=== PATIENT | female | born 1960 | race Caucasian/White ===

== ENCOUNTER → 2020-10-10 15:04 | Outpatient (CLI) | payer OTHER, SELFPAY ==
--- NOTE | ~2020-10-10 | MM_ITS ---
EXAMINATION: MM screening kay BI w sandeep HISTORY: Screening mammogram TECHNIQUE: Craniocaudal and mediolateral oblique 3-D tomosynthesis images were obtained and synthetic 2-D images were generated. CAD analysis was submitted and interpreted. COMPARISON: 06/01/2019 diagnostic bilateral digital mammogram and limited right breast ultrasound exa mination 06/09/2017, 03/31/2016 bilateral digital screening mammogram examinations BREAST PARENCHYMAL COMPOSITION: The breasts are almost entirely fatty. FINDINGS: There is no evidence of suspicious mass, calcification, or architectural distortion to sugg est malignancy in either breast. There has been no suspicious interval change. IMPRESSION: 1. No mammographic evidence of malignancy. 2. Recommend routine screening mammography in one year. BI-RADS Category 1: Negative Reviewed, dictated and finalized at location A.
== END ==
PROVIDERS: PCP Internal Medicine; Visit Provider Obstetrics & Gynecology
DX: Z12.31 Encounter for screening mammogram for malignant neoplasm of breast (principal)
CPT/HCPCS: 77063; 77067

== ENCOUNTER 2021-05-04 17:02 | Emergency (ER) | payer OTHER, SELFPAY ==
[2021-05-04 17:13] VITALS: BP 182/80; PULSE 83; RESP 16; TEMP 36.7; O2SAT 99
--- NOTE | 2021-05-04 17:14 | ED.WOUNDLAC ---
HPI - Wound/Laceration General Chief Complaint: Wound/Laceration Stated Complaint: left 1st digit toe Time Seen by Provider: 05/04/21 17:14 Source: patient Mode of arrival: ambulatory Limitations: no limitations History of Present Illness HPI narrative: Jasmin Pagan is a 60 yo female with a PMH of HTN, seasonal allergies, high cholesterol, who comes to [facility] with a small laceration to top of left foot at the base of the great toe and the lid of the can while she was cooking in the kitchen. bleeding is controlled Related Data Home Medications Medication Instructions Recorded Confirmed iqirodg-gggpunkmlkaju-cyxztada 250 1 tablet PO Q4-6H PRN 05/17/19 12/05/20 mg-250 mg-65 mg tablet cyanocobalamin (vitamin B-12) 2,500 mcg PO DAILY 05/17/19 12/05/20 2,500 mcg tablet fexofenadine 180 mg tablet 180 mg PO DAILY 05/17/19 12/05/20 ibuprofen 800 mg tablet 800 mg PO TID 05/17/19 12/05/20 krill 1,000 mg-omega-3 170 mg-dha 1 cap PO BID 05/17/19 12/05/20 50 mg-epa 80 jl-rrfktj-cdebv capsule Allergies Allergy/AdvReac Type Severity Reaction Status Date / Time lisinopril Allergy Mild Cough Verified 12/05/20 09:14 Penicillins Allergy Mild Rash Verified 12/05/20 09:14 Review of Systems Review of Systems: CONSTITUTIONAL: Denies fever, chills, sweats. EYES: Denies visual changes, redness, discharge. ENT: Denies rhinorrhea, congestion, sore throat, otalgia. CARDIOVASCULAR: Denies chest pain, palpitations, edema. RESPIRATORY: Denies dyspnea, wheezing, cough GASTROINTESTINAL: Denies abdominal pain, nausea, vomiting, diarrhea. GENITOURINARY: Denies dysuria, hematuria, abnormal discharge SKIN: Denies rash or itching. Small less than 1 cm straight laceration to the base of the great toe from a can lid NEUROLOGIC: Denies numbness, or focal weakness. PSYCHIATRIC: Denies anxiety or depression. [facility] Past Medical History Medical History (Updated 05/04/21 @ 17:51 by Corina Staley CNP) Arthritis GERD (gastroesophageal reflux disease) Hypercholesteremia Hypertension IBS (irritable bowel syndrome) Surgical History Surgical History History of bladder surgery History of colonoscopy History of primary section Hx of arthroscopic knee surgery Family History Family History Mother Hypertension Family history of chronic obstructive pulmonary disease Family history of diabetes mellitus in first degree relative Father Acute myocardial infarction, Onset Age: 78 Patient's father is Social History Social History Smoking status: Never smoker Second hand tobacco smoke exposure: No Alcohol intake: current Gender identity (if verbalized by the patient): Female Exam Narrative: GENERAL: This is a well-nourished, well-developed patient, in mild distress. HEAD: normocephalic, atraumatic. EYES: Sclera clear/white. Vision is grossly intact. EARS: External ears normal, . Hearing grossly intact. NOSE: External nose normal without nasal discharge, nares without redness, no rhinorrhea. THROAT: Mucous me CARDIOVASCULAR: Regular rate and rhythm without murmurs, gallops, or rubs. RESPIRATORY: Clear to auscultation. Breath sounds equal bilaterally. GASTROINTESTINAL: Abdomen soft, SKIN: warm, intact with less than 1 cm superficial laceration to the top of the left great toe at the base, refill good, bleeding controlled NEURO: awake, alert, and oriented to person, place and time. There were no obvious focal neurologic abnormalities. Steady gait EXTREMITIES: Normal range of motion. BACK: Nontender without deformity Course Course Emergency Course: Patient comes with a small laceration of the top of the foot at the base of the toe Vital Signs Vital signs: Vital Signs Temperature 98.0 F 05/04/21 17:13 Pulse Rate 83 05/04
[2021-05-04] MEDS: TETANUS,DIPHTHERIA,AC PERTUSSIS ADULT (0.5 ML) BOOSTRIX IM (17:56)
== END 2021-05-04 18:14 | disposition home or self-care (01) ==
PROVIDERS: Emergency Provider Nurse Practitioner; PCP Internal Medicine
DX: S91.112A Laceration without foreign body of left great toe without damage to nail, initial encounter (principal); W26.8XXA Contact with other sharp object(s), not elsewhere classified, initial encounter; Z23 Encounter for immunization; M19.90 Unspecified osteoarthritis, unspecified site; K21.9 Gastro-esophageal reflux disease without esophagitis; E78.00 Pure hypercholesterolemia, unspecified; I10 Essential (primary) hypertension
CPT/HCPCS: 12001; 90471; 90715; 99212; G0463

== ENCOUNTER 2021-12-03 18:44 | Emergency (ER) | payer OTHER, SELFPAY ==
[2021-12-03 18:54] VITALS: BP 186/82; PULSE 91; RESP 20; TEMP 37.1; O2SAT 98
--- NOTE | 2021-12-03 18:58 | ED.EYEPROB ---
HPI - Eye Problem General Chief complaint: Eye Problems Stated complaint: Eye Pain Time Seen by Provider: 12/03/21 18:59 Source: patient, RN notes reviewed and old records reviewed Mode of arrival: ambulatory Limitations: no limitations History of Present Illness HPI Narrative: 61-year-old female presents to the [facility] with complaints of eye pain, redness and drainage that started yesterday. Denies any change in vision. Has had drainage and eyes crusted today. No treatment prior to arrival no trauma MD chief complaint: eye pain and eye redness Related Data Home Medications Medication Instructions Recorded Confirmed avikmij-aqyuofubgeyzv-biuygnxo 250 1 tablet PO Q4-6H 05/17/19 12/03/21 mg-250 mg-65 mg tablet (Excedrin Extra Strength) cyanocobalamin (vitamin B-12) 2,500 mcg PO DAILY 05/17/19 12/03/21 2,500 mcg tablet fexofenadine 180 mg tablet 180 mg PO DAILY 05/17/19 12/03/21 (Dian Allergy) ibuprofen 800 mg tablet 800 mg PO TID 05/17/19 12/03/21 krill 1,000 mg-omega-3 170 mg-dha 1 cap PO BID 05/17/19 12/03/21 50 mg-epa 80 ph-xzkjva-fwvgb capsule (krill oil) Allergies Allergy/AdvReac Type Severity Reaction Status Date / Time lisinopril Allergy Mild Cough Verified 12/03/21 18:46 Penicillins Allergy Mild Rash Verified 12/03/21 18:46 Review of Systems Review of Systems: All systems reviewed & are unremarkable except as noted in HPI and below Constitutional: Constitutional: Reports no additional constitutional complaints, Denies chills and Denies fever(s) Eyes: Eyes: Reports as per HPI and Denies change in vision Comments: Drainage and crusty ENT: Reports system reviewed and no additional complaints, except as documented Cardiovascular: Cardiovascular: Reports no additional cardiovascular complaints Respiratory: Respiratory: Reports no additional respiratory complaints Gastrointestinal: Gastrointestinal: Reports no additional gastrointestinal complaints Musculoskeletal: Musculoskeletal: Reports no additional musculoskeletal complaints Integumentary/Breasts: Skin/Breast: Reports system reviewed and no additional complaints, except as docu Neurologic: Reports system reviewed and no additional complaints, except as documented Psychiatric: Psychiatric: Reports no additional psychiatric complaints Allergic/Immunologic: Allergic/Immunologic: Reports no additional allergic/immunologic complaints PMFSH Past Medical History Medical History Allergies Anxiety Arthritis Arthritis of carpometacarpal (CMC) joint of left thumb GERD (gastroesophageal reflux disease) Headache Hypercholesteremia Hypertension IBS (irritable bowel syndrome) Surgical History Surgical History History of bladder surgery History of colonoscopy History of knee surgery History of primary section History of thumb surgery Right thumb CMC suspension arthroplasty 2014 Hx of arthroscopic knee surgery Family History Family History Mother Hypertension Family history of chronic obstructive pulmonary disease Family history of diabetes mellitus in first degree relative Father Acute myocardial infarction, Onset Age: 78 Patient's father is Other Diabetes mellitus Heart disease Social History Social History Smoking status: Never smoker Second hand tobacco smoke exposure: No Alcohol intake: current Substance use: 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 There is no relevant family history pertinent to the patient complaint. Exam Const: General: heal
== END 2021-12-03 19:10 | disposition home or self-care (01) ==
PROVIDERS: Emergency Provider Nurse Practitioner; PCP Internal Medicine
DX: H10.33 Unspecified acute conjunctivitis, bilateral (principal); K21.9 Gastro-esophageal reflux disease without esophagitis; E78.00 Pure hypercholesterolemia, unspecified; I10 Essential (primary) hypertension; M18.9 Osteoarthritis of first carpometacarpal joint, unspecified
CPT/HCPCS: 99213; G0463

== ENCOUNTER 2022-03-31 02:56 | Day surgery (SDC) | payer OTHER, SELFPAY ==
[2022-03-13 11:52] VITALS: BMI 38.1
[2022-03-13 12:07] VITALS: BMI 41.6
[2022-03-31 06:45] VITALS: BP 154/79; PULSE 76; RESP 18; TEMP 36.1; O2SAT 98
[2022-03-31] MEDS: LACTATED RINGERS 1,000 ML 150 ML IV CONT (06:57)
--- NOTE | 2022-03-31 07:20 | WPDANESEPPF ---
Anes - Initial Pre Proc Eval Procedure: Operation Date: 03/31/22 08:00 Proposed Procedures p Screening Colonoscopy - Josef Espinal MD Date/Time: 03/31/22 07:20 Surgeon: Josef Espinal MD Pre Op Diagnosis: neoplasm screening Patient Data Age: 61 Gender: F Height: 1.55 m Weight: 101.1 kg Last Vital Signs Temp 36.1 C L 03/31/22 06:45 Pulse 76 03/31/22 06:45 Resp 18 03/31/22 06:45 BP 154/79 H 03/31/22 06:45 Pulse Ox 98 03/31/22 06:45 O2 Del Method Room Air 03/31/22 06:45 Allergies Allergy/AdvReac Type Severity Reaction Status Date / Time lisinopril Allergy Mild Cough Verified 03/31/22 06:44 Penicillins Allergy Mild Rash Verified 03/31/22 06:44 Home Medications Medication Instructions Recorded Confirmed Type cynlpqs-dnhcohpspnodz-ndztjpeh 250 1 tablet PO Q4-6H PRN Headache 05/17/19 03/13/22 History mg-250 mg-65 mg tablet (Excedrin Extra Strength) cyanocobalamin (vitamin B-12) 2,500 mcg PO DAILY 05/17/19 03/13/22 History 2,500 mcg tablet fexofenadine 180 mg tablet 180 mg PO DAILY PRN Allergy 05/17/19 03/13/22 History (Dian Allergy) Symptoms ibuprofen 800 mg tablet 800 mg PO TID PRN Pain 05/17/19 03/13/22 History krill 1,000 mg-omega-3 170 mg-dha 1 cap PO BID 05/17/19 03/13/22 History 50 mg-epa 80 fk-nvsmwp-jcaji capsule (krill oil) simvastatin 10 mg tablet 10 mg PO DAILY #90 tabs 07/27/21 03/13/22 Rx irbesartan 150 mg tablet (Avapro) 75 mg PO DAILY #45 tabs 10/25/21 03/13/22 Rx ergocalciferol (vitamin D2) 1,250 50,000 unit PO 2XW #26 caps 11/27/21 03/13/22 Rx mcg (50,000 unit) capsule sodium,potassium,mag sulfates 17.5 See Rx Instructions PO .COMPLEX 02/04/22 Rx gram-3.13 gram-1.6 gram oral soln #354 mL (Suprep Bowel Prep Kit) Patient hx anesthesia problems: none Family hx anesthesia problems: none Results Review: All pre-operative results and documents have been reviewed as part of the pre-operative evaluation. [facility] Past Medical History Medical History Allergies Anxiety Arthritis Arthritis of carpometacarpal (CMC) joint of left thumb GERD (gastroesophageal reflux disease) Headache Hypercholesteremia Hypertension IBS (irritable bowel syndrome) Surgical History Surgical History History of bladder surgery History of colonoscopy History of knee surgery History of primary section History of thumb surgery Right thumb CMC suspension arthroplasty 2014 Hx of arthroscopic knee surgery Family History Family History Mother Hypertension Family history of chronic obstructive pulmonary disease Family history of diabetes mellitus in first degree relative Father Acute myocardial infarction, Onset Age: 78 Patient's father is Other Diabetes mellitus Heart disease Social History Social History Smoking status: Never smoker Second hand tobacco smoke exposure: No Alcohol intake: current Alcohol use details: OCCASIONALLY Substance use: never Substance use type: does not use Living arrangements: with 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 Informed Consent: The patient
--- NOTE | 2022-03-31 07:51 | PM.HPGS ---
History of Present Illness History of Present Illness Consent: Risks, benefits, and alternatives have been discussed and questions answered. Patient agrees to proceed with procedure. Chief complaint: neoplasm screening Narrative: Jasmin Pagan is a 61 year old female Presents for screening colonoscopy. Patient reports her current weight appetite and bowel movements are normal. Patient denies abdominal pain. She has had no bleeding. Family history is noncontributory. Patient's last exam 10 years ago was unremarkable. Patient presents today for screening colonoscopy. Review of Systems Review of Systems: Review of systems noncontributory. [facility] Past Medical History Medical History Allergies Anxiety Arthritis Arthritis of carpometacarpal (CMC) joint of left thumb GERD (gastroesophageal reflux disease) Headache Hypercholesteremia Hypertension IBS (irritable bowel syndrome) Surgical History Surgical History History of bladder surgery History of colonoscopy History of knee surgery History of primary section History of thumb surgery Right thumb CMC suspension arthroplasty 2014 Hx of arthroscopic knee surgery Family History Family History Mother Hypertension Family history of chronic obstructive pulmonary disease Family history of diabetes mellitus in first degree relative Father Acute myocardial infarction, Onset Age: 78 Patient's father is Other Diabetes mellitus Heart disease Social History Social History Smoking status: Never smoker Second hand tobacco smoke exposure: No Alcohol intake: current Alcohol use details: OCCASIONALLY Substance use: never Substance use type: does not use Living arrangements: with 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 Gender identity (if verbalized by the patient): Female Spiritual care concerns: No Meds Home Medications and Allergies Home Medications Medication Instructions Recorded Confirmed Type pglufzj-vqmeaueoqqeyw-pzplcnxi 250 1 tablet PO Q4-6H PRN Headache 05/17/19 03/13/22 History mg-250 mg-65 mg tablet (Excedrin Extra Strength) cyanocobalamin (vitamin B-12) 2,500 mcg PO DAILY 05/17/19 03/13/22 History 2,500 mcg tablet fexofenadine 180 mg tablet 180 mg PO DAILY PRN Allergy 05/17/19 03/13/22 History (Dian Allergy) Symptoms ibuprofen 800 mg tablet 800 mg PO TID PRN Pain 05/17/19 03/13/22 History krill 1,000 mg-omega-3 170 mg-dha 1 cap PO BID 05/17/19 03/13/22 History 50 mg-epa 80 ge-npyspu-gyixj capsule (krill oil) simvastatin 10 mg tablet 10 mg PO DAILY #90 tabs 07/27/21 03/13/22 Rx irbesartan 150 mg tablet (Avapro) 75 mg PO DAILY #45 tabs 10/25/21 03/13/22 Rx ergocalciferol (vitamin D2) 1,250 50,000 unit PO 2XW #26 caps 11/27/21 03/13/22 Rx mcg (50,000 unit) capsule sodium,potassium,mag sulfates 17.5 See Rx Instructions PO .COMPLEX 02/04/22 Rx gram-3.13 gram-1.6 gram oral soln #354 mL (Suprep Bowel Prep Kit) Allergies Allergy/AdvReac Type Severity Reaction Status Date / Time lisinopril Allergy Mild Cough Verified 03/31/22 06:44 Penicillins Allergy Mild Rash Verified 03/31/22 06:44 Vital Signs Vital Signs - 24 hr 03/31/22 06:45 Temperature 97 F L Pulse Rate 76 Respiratory Rate 18 Blood Pressure 154/79 H Pulse Oximetry 98 Oxygen Delivery Room Air Exam Narrative: Physical exam reveals patient be alert. Vital signs stable. HEENT exam is unremarkable. Patient is anicteric. Lungs are clear to auscultation and percussion. Heart without murmur. Abdomen is obese. Bowel sounds are present soft nontender with no organomegaly. Digital external rectal exam is normal. Assessment and Plan Assessment and plan (1) En
[2022-03-31 08:16] VITALS: BP 140/74; PULSE 74; RESP 19; O2SAT 99
[2022-03-31 08:26] VITALS: BP 158/79; PULSE 83; RESP 20; O2SAT 99
[2022-03-31 08:36] VITALS: BP 150/80; PULSE 70; RESP 20; O2SAT 99
== END 2022-03-31 08:53 | disposition home or self-care (01) ==
PROVIDERS: PCP Internal Medicine; Visit Provider Internal Medicine Gastroenterology
PROC: 0DJD8ZZ Inspection of Lower Intestinal Tract, Via Natural or Artificial Opening Endoscopic (ICD-10-PCS; CPT 45378; principal; 2022-03-31 08:00)
DX: Z12.11 Encounter for screening for malignant neoplasm of colon (principal); K64.8 Other hemorrhoids; K57.30 Diverticulosis of large intestine without perforation or abscess without bleeding; F41.9 Anxiety disorder, unspecified; M19.90 Unspecified osteoarthritis, unspecified site; K21.9 Gastro-esophageal reflux disease without esophagitis; E78.00 Pure hypercholesterolemia, unspecified; I10 Essential (primary) hypertension; K58.9 Irritable bowel syndrome, unspecified; Z79.82 Long term (current) use of aspirin; E66.01 Morbid (severe) obesity due to excess calories; Z68.41 Body mass index [BMI] 40.0-44.9, adult
CPT/HCPCS: 45378; J2704; J7120

== ENCOUNTER 2022-11-02 11:26 | Emergency (ER) | payer OTHER, SELFPAY ==
[2022-11-02 11:35] VITALS: BP 133/79; PULSE 84; RESP 12; TEMP 36.8; O2SAT 99
[2022-11-02 11:36] VITALS: BP 133/79; PULSE 84; RESP 12; TEMP 36.8; O2SAT 99
--- NOTE | 2022-11-02 11:41 | ED.URI ---
HPI - URI/Sore Throat General Chief Complaint: Upper Respiratory Infection Stated Complaint: Sinus Time Seen by Provider: 11/02/22 11:38 Source: patient Mode of arrival: ambulatory Limitations: no limitations History of Present Illness HPI Narrative: Jasmin is a 62-year-old female patient presenting to the clinic today with complaints of sinus congestion and right eye irritation. She reports sinus congestion with green nasal drainage has been going on for 4 weeks. States she is having a lot of sinus pressure. Right eye began itchy and draining yesterday with yellow discharge. Did terrell shut this morning MD elicited complaint: sore throat and nasal congestion Related Data Home Medications Medication Instructions Recorded Confirmed lngintc-gbgpypblnuhim-xfjuzxjo 250 1 tablet PO Q4-6H PRN Headache 05/17/19 11/02/22 mg-250 mg-65 mg tablet (Excedrin Extra Strength) cyanocobalamin (vitamin B-12) 2,500 mcg PO DAILY 05/17/19 11/02/22 2,500 mcg tablet fexofenadine 180 mg tablet 180 mg PO DAILY PRN Allergy 05/17/19 11/02/22 (Dian Allergy) Symptoms ibuprofen 800 mg tablet 800 mg PO TID PRN Pain 05/17/19 11/02/22 estradiol 10 mcg vaginal tablet 10 mcg vaginal DAILY 11/02/22 11/02/22 Allergies Allergy/AdvReac Type Severity Reaction Status Date / Time lisinopril Allergy Mild Cough Verified 11/02/22 11:35 Penicillins Allergy Mild Rash Verified 11/02/22 11:35 Review of Systems Review of Systems: Pertinent positives per HPI. Patient denies any fever, chills, rash, headache, visual changes, dizziness, cough, shortness of breath, chest pain, palpitations, nausea, vomiting, diarrhea, constipation, abdominal pain, or any urinary issues. [facility] Past Medical History Medical History Allergies Anxiety Arthritis Arthritis of carpometacarpal (CMC) joint of left thumb GERD (gastroesophageal reflux disease) Headache Hypercholesteremia Hypertension IBS (irritable bowel syndrome) Surgical History Surgical History History of bladder surgery History of colonoscopy History of knee surgery History of primary section History of thumb surgery Right thumb CMC suspension arthroplasty 2014 Hx of arthroscopic knee surgery Family History Family History Mother Hypertension Family history of chronic obstructive pulmonary disease Family history of diabetes mellitus in first degree relative Father Acute myocardial infarction, Onset Age: 78 Patient's father is Other Diabetes mellitus Heart disease Social History Social History Smoking status: Never smoker Second hand tobacco smoke exposure: No Alcohol intake: current Alcohol use details: OCCASIONALLY Substance use: never Substance use type: does not use Lack of Transportation: No Lack of Food: Never True Current Housing: I Have Housing Concerned About Future Housing: No Difficulty Paying Gas/Electric Bills: No Difficulty Paying for Meds: No Currently Unemployed: No Education: High School Diploma/GED Difficulty w/ Childcare or Family Care: No Living arrangements: with family Occupation/Education: occupation Additional occupation/education comments: Admin Gender identity (if verbalized by the patient): Female Spiritual care concerns: No Comments At the time of my signature, I reviewed and agree with the nursing past medical, surgical, social, and family history. There is no relevant family history pertinent to the patient complaint. Exam Narrative: General: Well-developed, well nourished, in no apparent distress Head: Normocephalic, atraumatic Eyes: Pupils equally round and reactive to light bilaterally, EOM intact, left sclera and conjunctive phill
== END 2022-11-02 11:51 | disposition home or self-care (01) ==
PROVIDERS: Emergency Provider Nurse Practitioner Family; PCP Internal Medicine
DX: J01.90 Acute sinusitis, unspecified (principal); H10.31 Unspecified acute conjunctivitis, right eye; M19.90 Unspecified osteoarthritis, unspecified site; K21.9 Gastro-esophageal reflux disease without esophagitis; E78.00 Pure hypercholesterolemia, unspecified; I10 Essential (primary) hypertension; M18.12 Unilateral primary osteoarthritis of first carpometacarpal joint, left hand; Z79.82 Long term (current) use of aspirin
CPT/HCPCS: 99213; G0463

== ENCOUNTER → 2023-06-11 07:11 | Outpatient (CLI) | payer OTHER, SELFPAY ==
--- NOTE | ~2023-06-11 | XR_ITS ---
EXAMINATION: XR lumbar spine 6V w bending DATE: 06/11/2023 07:41 INDICATION: Low back pain, unspecified. TECHNIQUE: 7 views of lumbar spine including standing and flexion and extension views were obtained. COMPARISON: Lumbar spine radiographs 07/22/2016, CT 05/02/2019 FINDINGS: There is 5 degrees dextrocurvature of lumbar spine. There is no abnormal motion with flexio n or extension. Vertebral body heights are normal. There is mildly decreased disc height at L1-L2, L2 -L3, and L3-L4 and severely decreased disc height at L4-L5 and L5-S1. There is multilevel facet joint osteoarthritis, severe in lower lumbar spine. IMPRESSION: 1. Severe lower lumbar spondylosis. Reviewed, dictated and finalized at location A. [employer]
== END ==
PROVIDERS: PCP Orthopaedic Surgery; Visit Provider Orthopaedic Surgery
DX: M47.896 Other spondylosis, lumbar region (principal)
CPT/HCPCS: 72114